=== PATIENT | male | born 1945 | race Caucasian/White ===

== ENCOUNTER → 2016-09-04 | Outpatient (CLI) | payer MEDICARE, MEDICAID ==
[~2016-09-04] MED LIST: ACETAMINOPHEN-H1 TA1 PO; AMARYL PO; FERROUS SULFAT325 M4 PO; GLUCOPHAGE XR500 M2 PO; KETOROLAC10 MG PO; LASIX 40MG TABL40 MG PO; LIPITOR 40MG TA40 MG PO; LISINOPRIL5 MG PO; LYRICA200 MG PO; PRILOSEC40 M1 PO; UNABLE; ZYLOPRIM 300MG300 MG PO
== END ==
LOC: RAD 08:19
DX: R05 Cough (principal); J20.8 Acute bronchitis due to other specified organisms

== ENCOUNTER → 2016-10-13 | Outpatient (CLI) | payer MEDICARE | LOC: LAB 10:55 | DX: E13.9 Other specified diabetes mellitus without complications (principal); E03.4 Atrophy of thyroid (acquired); E78.2 Mixed hyperlipidemia; N52.9 Male erectile dysfunction, unspecified; G62.89 Other specified polyneuropathies ==

== ENCOUNTER → 2016-11-12 | Outpatient (CLI) | payer MEDICARE, MEDICAID ==
[2016-01-11 14:06] VITALS: BP 112/68
== END ==
LOC: VAS 16:25
DX: I10 Essential (primary) hypertension (principal); I13.0 Hypertensive heart and chronic kidney disease with heart failure and stage 1 through stage 4 chronic kidney disease, or unspecified chronic kidney disease; R60.0 Localized edema

== ENCOUNTER → 2016-11-22 | Outpatient (CLI) | payer MEDICARE, MEDICAID ==
[2016-01-11 14:06] VITALS: BP 112/68
== END ==
LOC: RAD 10:54
DX: R06.02 Shortness of breath (principal)

== ENCOUNTER → 2016-11-23 | Outpatient (CLI) | payer MEDICARE, MEDICAID ==
[2016-01-11 14:06] VITALS: BP 112/68
== END ==
LOC: LAB 09:35
DX: R60.9 Edema, unspecified (principal); N17.9 Acute kidney failure, unspecified; N18.9 Chronic kidney disease, unspecified

== ENCOUNTER → 2016-11-24 | Outpatient (CLI) | payer MEDICARE, MEDICAID ==
[2016-01-11 14:06] VITALS: BP 112/68
== END ==
LOC: LAB 09:35
DX: I13.0 Hypertensive heart and chronic kidney disease with heart failure and stage 1 through stage 4 chronic kidney disease, or unspecified chronic kidney disease (principal); N18.4 Chronic kidney disease, stage 4 (severe)

== ENCOUNTER → 2016-11-27 | Outpatient (CLI) | payer MEDICARE, MEDICAID ==
[2016-01-11 14:06] VITALS: BP 112/68
== END ==
LOC: LAB 06:04
DX: I13.0 Hypertensive heart and chronic kidney disease with heart failure and stage 1 through stage 4 chronic kidney disease, or unspecified chronic kidney disease (principal)

== ENCOUNTER → 2016-12-04 | Outpatient (CLI) | payer MEDICARE, MEDICAID ==
[2016-01-11 14:06] VITALS: BP 112/68
== END ==
LOC: LAB 05:30
DX: I13.0 Hypertensive heart and chronic kidney disease with heart failure and stage 1 through stage 4 chronic kidney disease, or unspecified chronic kidney disease (principal); N18.9 Chronic kidney disease, unspecified

== ENCOUNTER → 2016-12-08 | Outpatient (CLI) | payer MEDICARE, MEDICAID ==
[2016-01-11 14:06] VITALS: BP 112/68
== END ==
LOC: LAB 06:50
DX: E55.9 Vitamin D deficiency, unspecified (principal); I13.0 Hypertensive heart and chronic kidney disease with heart failure and stage 1 through stage 4 chronic kidney disease, or unspecified chronic kidney disease

== ENCOUNTER → 2016-12-29 | Outpatient (CLI) | payer MEDICARE, MEDICAID ==
[2016-01-11 14:06] VITALS: BP 112/68
== END ==
LOC: LAB 11:27
DX: M1A.0790 Idiopathic chronic gout, unspecified ankle and foot, without tophus (tophi) (principal)

== ENCOUNTER → 2017-01-05 | Outpatient (CLI) | payer MEDICARE, MEDICAID ==
[2016-01-11 14:06] VITALS: BP 112/68
== END ==
LOC: LAB 15:00
DX: I10 Essential (primary) hypertension (principal); M10.9 Gout, unspecified; N19 Unspecified kidney failure

== ENCOUNTER → 2017-01-08 | Outpatient (CLI) | payer MEDICARE, MEDICAID ==
[2016-01-11 14:06] VITALS: BP 112/68
== END ==
LOC: LAB 05:51
DX: M10.00 Idiopathic gout, unspecified site (principal); I13.0 Hypertensive heart and chronic kidney disease with heart failure and stage 1 through stage 4 chronic kidney disease, or unspecified chronic kidney disease; I10 Essential (primary) hypertension

== ENCOUNTER → 2017-01-30 | Outpatient (CLI) | payer MEDICARE, MEDICAID ==
[2016-01-11 14:06] VITALS: BP 112/68
== END ==
LOC: LAB 14:55
DX: L97.511 Non-pressure chronic ulcer of other part of right foot limited to breakdown of skin (principal)

== ENCOUNTER → 2017-02-05 | Outpatient (CLI) | payer MEDICARE, MEDICAID ==
[2016-01-11 14:06] VITALS: BP 112/68
== END ==
LOC: LAB 10:56
DX: I13.0 Hypertensive heart and chronic kidney disease with heart failure and stage 1 through stage 4 chronic kidney disease, or unspecified chronic kidney disease (principal); M10.9 Gout, unspecified; I10 Essential (primary) hypertension; N18.9 Chronic kidney disease, unspecified

== ENCOUNTER → 2017-02-16 | Outpatient (CLI) | payer MEDICARE, MEDICAID ==
[2016-01-11 14:06] VITALS: BP 112/68
== END ==
LOC: LAB 06:10
DX: I13.0 Hypertensive heart and chronic kidney disease with heart failure and stage 1 through stage 4 chronic kidney disease, or unspecified chronic kidney disease (principal); E13.9 Other specified diabetes mellitus without complications; G62.89 Other specified polyneuropathies

== ENCOUNTER → 2017-05-15 | Outpatient (CLI) | payer MEDICARE, MEDICAID ==
[2016-01-11 14:06] VITALS: BP 112/68
[2017-05-15 06:42] LABS: EOS # 0.4 (0.04-0.40); HEMATOCRIT 37.2 % (42.0-52.0); HEMOGLOBIN 11.9 g/dL (13.5-18.0); LYMPH# 2.3 (1.50-4.00); MEAN CELL VOLUME 93 fl (78-100); MEAN CORPUSCULAR HEMOGLOBIN 30 pg (27-31); MEAN CORPUSCULAR HGB CONC 32 g/dL (33-37); MEAN PLATELET VOLUME 9.6 fl (7.4-10.4); MONO # 0.7 (0.20-0.80); NEU # 4.7 (1.40-6.50); PLATELET COUNT 225 K/mm3 (130-400); RED BLOOD COUNT 3.99 M/mm3 (4.20-5.60); RED CELL DISTRIBUTION WIDTH 16.1 % (11.5-14.5); WHITE BLOOD COUNT 8.2 K/mm3 (4.8-10.8)
[2017-05-15 06:55] LABS: EOS % 5.2 % (0.0-4.0)
[2017-05-15 06:56] LABS: ALBUMIN 3.9 g/dL (3.5-5.0); BUN/CREATININE RATIO 20.3 (6.0-26.0); CALCIUM 9.2 mg/dL (8.4-10.2); TOTAL BILIRUBIN 0.5 mg/dL (0.2-1.3); TOTAL PROTEIN 6.4 g/dL (6.3-8.2)
== END ==
LOC: LAB 06:20
PROVIDERS: Internal Medicine
DX: E13.9 Other specified diabetes mellitus without complications (principal); I10 Essential (primary) hypertension; I13.0 Hypertensive heart and chronic kidney disease with heart failure and stage 1 through stage 4 chronic kidney disease, or unspecified chronic kidney disease; E03.4 Atrophy of thyroid (acquired); G47.33 Obstructive sleep apnea (adult) (pediatric); G62.89 Other specified polyneuropathies; E55.9 Vitamin D deficiency, unspecified

== ENCOUNTER → 2017-08-04 | Outpatient (CLI) | payer MEDICARE, MEDICAID ==
[2016-01-11 14:06] VITALS: BP 112/68
[2017-08-04 18:26] LABS: BUN/CREATININE RATIO 16.5 (6.0-26.0); CALCIUM 9.3 mg/dL (8.4-10.2); POTASSIUM 3.8 mmol/L (3.6-5.0)
== END ==
LOC: LAB 16:52
PROVIDERS: Internal Medicine
DX: M1A.0790 Idiopathic chronic gout, unspecified ankle and foot, without tophus (tophi) (principal)